=== PATIENT | female | born 1945 | race Caucasian/White ===

== ENCOUNTER 2016-09-18 15:51 | Emergency (ER) | payer OTHER ==
[2016-09-18] MEDS ORDERED: OXYMETAZOLINE 30 ML NASAL SPRAY ONE (16:00)
[2016-09-18] MEDS ORDERED: SILVER NITRATE APPLICATOR 1 APPL TP ONE (16:01)
[2016-09-18 16:10] VITALS: RESP 18; TEMP 98
--- NOTE | 2016-09-18 16:25 | UCPHY ---
H & P Time Seen by Provider: 09/18/16 16:10 Patient Type: Established HPI/ROS: HPI Nose bleed. 70-year-old female. She is on dabigatran for atrial fibrillation. She reports spontaneous nose bleed, right nasal cavity ongoing for the last 2 and 0.5 hours , unrelieved by pressure. No history of traumatic event. Not lightheaded. No headache. No other complaints. ROS: Constitutional: No fever, no chills. No weakness. Eyes: No discharge. No changes in vision. ENT: No sore throat. No nasal congestion or rhinorrhea. As above. Respiratory: No cough. No shortness of breath. Cardiac: No chest pain, no palpitations. Gastrointestinal: No abdominal pain, no vomiting, no diarrhea. Genitourinary: No hematuria. No dysuria or increased frequency with urination. Musculoskeletal: No back pain. No neck pain. No myalgias or arthralgias. Skin: No rashes. Neurological: No headache. No focal weakness or altered sensation. Past medical history: Depression, constipation, CVA, coronary artery disease, AFib, hypertension. Social history: Here with family member. Nonsmoker. Physical Exam: General Appearance: Alert, no distress. This patient is responding to questions appropriately and in full sentences. This patient appears well- hydrated and well-nourished. Eyes: Pupils equal and round no pallor or injection. No lid edema, erythema or injection. ENT, Mouth: Mucous membranes are moist. Blood in the posterior pharynx. The pharyngeal tissues are unremarkable. No edema or swelling. No asymmetry suggestive of abscess. No erythema or exudates. On speculum examination, source of bleeding is anterior mid septum right nasal cavity. Neurological: Motor sensory function is grossly intact. Cranial nerves are normal. Gait is normal. Skin: Warm and dry, no rashes. Musculoskeletal: Neck is supple and nontender. Extremities are symmetrical. All joints range without pain or impingement. Psychiatric: No agitation. No depression. Database: EKG: Imaging: Procedures: Procedure: Epistaxis control. After verbal consent was obtained, the patient was anesthetized with Afrin solution soaked cotton pledget. The anterior epistaxis was identified. The patient was treated with chemical cautery initially, this failed. The bleeding was 2 brisk secondary to dabigatran and anticoagulation. A 4 cm rhino rocket nasal plug was indicated. We did not have this at urgent care. I had placed a 5.5 cm rhino rocket. Good tamponade an hemostasis was achieved with this. Following the procedure the patient was re-examined and the bleeding was well controlled. The patient tolerated the procedure well. The procedure was performed by myself. Emergency department course: After my evaluation, procedure as above. After this procedure, the patient was given 500 mg of oral Keflex. Plan will be to prescribe her this medication over the next 3 days. She is to follow up with [facility] tomorrow in their clinic for re-evaluation and further management. I explained to the patient and her family member that the standard duration of placement of a nasal pack is 3 days. I discussed the importance of follow-up tomorrow in ENT Clinic. Return to emergency department precautions were reviewed. All of their questions were answered. She was discharged in good condition. Differential Diagnosis: The differential diagnosis on this patient includes but is not limited to anterior epistaxis, on anticoagulation. Posterior source of bleeding, traumatic injury unlikely. This represents a partial list of diagnoses considered. These considerations are based on history, physical exam, past history, reassessment and diagnostic testing. Smoking Status: Never smoked Constitutional: Initial Vital Signs Temperature (C) 36.6 C 09/18/16 16:08 Heart Rate 85 09/18/16 16:08 Respiratory Rate 18 09/18/16 16:08 Blood Pressure 157/64 H 09/18/16 16:08 O2 Sat (%) 95 09/18/16 16:08 O2 Delivery Mode Room Air Allergies/Adverse Reactions: Sulfa (Sulfonamide Antibiotics) Allergy (Intermediate, Verified 07/01/15 07:38) Hives Home Medications: Medication Instructions Recorded PARoxetine HCL [Paxil 30mg (RX)] 09/24/12 Coreg 08/25/14 Pradaxa 08/25/14 Digoxin 03/03/15 Ambien 07/01/15 CLONAZEPAM 07/01/15 Ciprofloxacin [Cipro] 250 mg PO BID@1000,2000 #10 tab 07/01/15 Lisinopril 07/01/15 Ondansetron Odt [Zofran Odt 4 mg 4 mg PO Q4 PRN #6 tab 07/01/15 (RX)] Cephalexin [Keflex (*)] 500 mg PO Q6 3 Days 09/18/16 Departure - Departure Disposition: Home, Routine, Self-Care Clinical Impression: Epistaxis Condition: Good Instructions: Nosebleed (ED) Additional Instructions: Read and follow provided instructions. Follow-up with [facility], tomorrow in clinic as discussed for re- evaluation and further management. Take Keflex, 500 mg, 4 times daily for the next 3 days while the nasal plug is in place. Return to the emergency department for bleeding, difficulty breathing, lightheaded or other serious concerns. Referrals: Cesar Casillas MD [Medical Doctor] - As per Instructions Prescriptions: Cephalexin [Keflex (*)] 500 mg PO Q6 3 Days - PQRS PQRS Measurement: 134: Depression screening and followup, PRIME MD-PHQ2 (12 years and older) Over the last 2 weeks, how often have you been bothered by any of the following problems? 1. Feeling down, depressed, or hopeless? 2. Little interest or pleasure in doing things? Answered no to both questions. 130: Documentation of medications. Reviewed all patient medications, doses, route and frequency. 226: Do you smoke? No. 47: 65 and older: Advanced care planning. Patient designates surrogate decision maker as family. 51: 18 years old and older with diagnosis of COPD, spirometry performance. NA 52: 18 years old and older with COPD and symptoms of COPD or FEV1<60% predicted prescribed a B Agonist. NA
[2016-09-18] MEDS ORDERED: CEPHALEXIN 500 MG CAP PO ONE (16:51)
[2016-09-18] MEDS ORDERED: CEPHALEXIN 500MG PREPACK#4 BTL TAKEHOME ONE (16:51)
[2016-09-18 17:31] VITALS: BP 170/98; PULSE 106; O2SAT 90
== END 2016-09-18 17:15 | disposition home or self-care (01) ==
LOC: CED 15:51
PROC: 2Y41X5Z Packing of Nasal Region using Packing Material (ICD-10-PCS; principal; 2016-09-18)
DX: R04.0 Epistaxis (principal); Z79.01 Long term (current) use of anticoagulants; I48.91 Unspecified atrial fibrillation; I25.10 Atherosclerotic heart disease of native coronary artery without angina pectoris; Z86.73 Personal history of transient ischemic attack (TIA), and cerebral infarction without residual deficits
CPT/HCPCS: 30901; G0463; 99214-PO

== ENCOUNTER → 2017-05-04 | Outpatient (CLI) | payer OTHER, MEDICAID | LOC: CIMAGING 12:03 | PROVIDERS: ATTEND Family Medicine | DX: Z12.31 Encounter for screening mammogram for malignant neoplasm of breast (principal) | CPT/HCPCS: G0202 ==

== ENCOUNTER 2017-09-23 11:07 | Emergency (ER) | payer OTHER, MEDICAID ==
[2017-09-23 11:20] VITALS: BP 146/74; PULSE 67; RESP 16; TEMP 97.9; O2SAT 95
[2017-09-23] MEDS ORDERED: CEPHALEXIN 500 MG CAP PO ONE (11:54)
--- NOTE | 2017-09-23 11:54 | EDPHY ---
H & P Time Seen by Provider: 09/23/17 11:18 HPI/ROS: This patient describes dysuria for over a week now. She also describes back pain that she has had prior to the onset of her urinary symptoms. She thinks this is a kidney but admits that she has had this pain between urinary tract infections as well and is described as mild to moderate right-sided lumbar more than midline. She also describes suprapubic discomfort of moderate intensity distant with prior UTIs. Her drove her here by private vehicle for evaluation of her symptoms. ROS: No fevers. No other constitutional symptoms Pulmonary: No shortness of breath Cardiovascular: No lightheadedness GI: No nausea vomiting : As per HPI. She has baseline urinary incontinence since having stroke. Neuro: No new numbness or tingling in her lower extremities. 7 point ROS is otherwise negative. Past Medical/Surgical History: A review of past medical records reveals a Klebsiella pneumonia pathogen a prior UTI here a few years ago that was sensitive to cephalosporins and to Macrobid. She was seen in August [address] Edward foy-urology for evaluation of her frequent UTIs and had an unremarkable ultrasound of kidneys your bladder at that time per patient's report Prior stroke with baseline urinary incontinence Smoking Status: Never smoked Physical Exam: General Appearance: Alert, no distress. Eyes: Pupils equal and round no pallor or injection. ENT, Mouth: Mucous membranes moist. Respiratory: There are no retractions, lungs are clear to auscultation. Cardiovascular: Regular rate and rhythm. No murmur gallop or rub Gastrointestinal: Normoactive, soft, mild suprapubic tenderness with no guarding or rebound. Back: Mild lumbar midline tenderness the patient states is baseline for her. Right lumbar paraspinous muscular tenderness more likely than CVA tenderness based on exam. Neurological: GCS 15 Skin: Warm and dry, no rashes. Musculoskeletal: Neck is supple nontender. Extremities are symmetrical, full range of motion. Psychiatric: Mood and affect normal DIFFERENTIAL DIAGNOSIS: After history and physical exam differential diagnosis was considered for cystitis, early pyelonephritis, urethritis, chronic back pain Constitutional: Initial Vital Signs Temperature (C) 36.6 C 09/23/17 11:15 Heart Rate 67 09/23/17 11:15 Respiratory Rate 16 09/23/17 11:15 Blood Pressure 146/74 H 09/23/17 11:15 O2 Sat (%) 95 09/23/17 11:15 O2 Delivery Mode Room Air Allergies/Adverse Reactions: Sulfa (Sulfonamide Antibiotics) Allergy (Intermediate, Verified 09/23/17 11:20) Hives Home Medications: Medication Instructions Recorded PARoxetine HCL [Paxil 30mg (RX)] 09/24/12 Pradaxa 08/25/14 Cephalexin [Keflex (*)] 500 mg PO TID #21 cap 09/23/17 Phenazopyridine HCl [Pyridium 200 mg PO TID PRN #6 tab 09/23/17 200mg (RX)] MDM/Departure - MDM Diagnostics: Review of urinalysis reveals leukocytes, bacteria and microscopic hematuria consistent with UTI. I sent a culture which is pending. Medications Given: Discontinued Medications Cephalexin HCl (Keflex) 500 mg PO EDNOW ONE PRN Reason: Protocol Stop: 09/23/17 11:55 Last Admin: 09/23/17 12:02 Dose: 500 mg Phenazopyridine HCl (Pyridium) 200 mg PO EDNOW ONE Stop: 09/23/17 11:56 Last Admin: 09/23/17 12:03 Dose: 200 mg ED Course/Re-evaluation: Discussion: Patient here with UTI likely cystitis versus early pyelonephritis given back discomfort. Given this will cover her with Keflex antibiotic. She received 1st 500 mg dose while here in the emergency department as well as peridium does for comfort. She does not appear toxic and should do well with p.o. Medications. - Depart Disposition: Home, Routine, Self-Care Clinical Impression: Urinary tract infection Qualifiers: Urinary tract infection type: site unspecified Hematuria presence: without hematuria Qualified Code(s): N39.0 - Urinary tract infection, site not specified Condition: Good Instructions: Urinary Tract Infection in Women (ED) Additional Instructions: Diagnosis: Urinary tract infection Plan: Drink plenty fluids Keflex antibiotic Follow up with primary care physician for any ongoing symptoms that persist beyond the next 3-5 days Return for any significant worsening despite the treatment plan. Prescriptions: Cephalexin [Keflex (*)] 500 mg PO TID #21 cap Phenazopyridine HCl [Pyridium 200mg (RX)] 200 mg PO TID PRN #6 tab PRN Reason: dysuria Referrals: Kika Guillory MD [Primary Care Provider] - As per Instructions
[2017-09-23] MEDS ORDERED: PHENAZOPYRIDINE HCL 200 MG TAB PO ONE (11:55)
== END 2017-09-23 12:13 | disposition home or self-care (01) ==
LOC: CED 11:07
DX: N39.0 Urinary tract infection, site not specified (principal); B96.89 Other specified bacterial agents as the cause of diseases classified elsewhere
CPT/HCPCS: 81003-PO; 81015-PO

== ENCOUNTER 2017-09-26 13:21 | Emergency (ER) | payer OTHER, MEDICAID ==
[2017-09-26] MEDS ORDERED: NS 1,400 ML IV ONE (13:34)
--- NOTE | 2017-09-26 13:35 | EDPHY ---
H & P Stated Complaint: uti worse.seen here two days ago Time Seen by Provider: 09/26/17 13:29 HPI/ROS: CHIEF COMPLAINT: Urinary tract infection, fatigue HISTORY OF PRESENT ILLNESS: Patient is a 71-year-old female who returns to the emergency department complaining of urinary tract infection and increased fatigue. She was seen here 3 days ago diagnosed with urinary tract infection and started on Keflex. Today her culture results returned with enterococcus faecalis. We called and switched her to Macrobid but during the course of our conversation she stated that she was feeling fatigued. Nursing staff recommended she come back to be re-evaluated. She did take her 1st dose of Macrobid a few hours ago. She has not had a fever. She has felt nauseous but has not vomited. No diarrhea. No abdominal pain. Mild lower back pain. Her states that she has been acting normally at home. REVIEW OF SYSTEMS: Constitutional: denies: chills, fever, recent illness, recent injury EENTM: denies: blurred vision, double vision, nose congestion Respiratory: denies: cough, shortness of breath Cardiac: denies: chest pain, irregular heart rate, lightheadedness, palpitations Gastrointestinal/Abdominal: denies: abdominal pain, diarrhea, nausea, vomiting, blood streaked stools Genitourinary: See HPI Musculoskeletal: denies: joint pain, muscle pain Skin: denies: lesions, rash, jaundice, bruising Neurological: denies: headache, numbness, paresthesia, tingling, dizziness, weakness Hematologic/Lymphatic: denies: blood clots, easy bleeding, easy bruising Immunologic/allergic: denies: HIV/AIDS, transplant EXAM: GENERAL: Well-appearing, slightly dry small amount of food in the right corner of her mouth. HEAD: Atraumatic, normocephalic. EYES: Pupils equal round and reactive to light, extraocular movements intact, sclera anicteric, conjunctiva are normal. ENT: TMs normal, nares patent, oropharynx clear without exudates. Dry mucous membranes. NECK: Normal range of motion, supple without lymphadenopathy or JVD. LUNGS: Breath sounds clear to auscultation bilaterally and equal. No wheezes rales or rhonchi. HEART: Regular rate and rhythm without murmurs, rubs or gallops. ABDOMEN: Soft, nontender, normoactive bowel sounds. No guarding, no rebound. No masses appreciated. BACK: No CVA tenderness, no spinal tenderness, step-offs or deformities EXTREMITIES: Normal range of motion, no pitting or edema. No clubbing or cyanosis. NEUROLOGICAL: Cranial nerves II through XII grossly intact. Normal speech, normal gait. 5/5 strength, normal movement in all extremities, normal sensation PSYCH: Normal mood, normal affect. SKIN: Warm, dry, normal turgor, no visible rashes or lesions. Source: Patient Exam Limitations: No limitations - Personal History Current Tetanus Diphtheria and Acellular Pertussis (TDAP): Yes Tetanus Vaccine Date: WITHIN 10 YRS - Medical/Surgical History Hx Asthma: No Hx Chronic Respiratory Disease: No Hx Diabetes: No Hx Cardiac Disease: Yes Hx Renal Disease: No Hx Cirrhosis: No Hx Alcoholism: No Hx HIV/AIDS: No Hx Splenectomy or Spleen Trauma: No Other PMH: DEPRESSION,CONSTIPATION,CVA,A FIB,CAD,HTN, incontinence - Family History Significant Family History: No pertinent family hx - Social History Smoking Status: Former smoker Alcohol Use: Sober Drug Use: None Constitutional: Initial Vital Signs Temperature (C) 36.2 C 09/26/17 13:25 Heart Rate 53 L 09/26/17 13:25 Respiratory Rate 20 09/26/17 13:25 Blood Pressure 148/99 H 09/26/17 13:25 O2 Sat (%) 95 09/26/17 13:25 O2 Delivery Mode Room Air Allergies/Adverse Reactions: Sulfa (Sulfonamide Antibiotics) Allergy (Intermediate, Verified 09/26/17 13:33) Hives Home Medications: Medication Instructions Recorded PARoxetine HCL [Paxil 30mg (RX)] 09/24/12 Pradaxa 08/25/14 Cephalexin [Keflex (*)] 500 mg PO TID #21 cap 09/23/17 Phenazopyridine HCl [Pyridium 200 mg PO TID PRN #6 tab 09/23/17 200mg (RX)] Ondansetron Odt [Zofran Odt 4 mg 4 mg PO Q4 PRN #20 tab 09/26/17 (RX)] Medical Decision Making ED Course/Re-evaluation: The chemistry and lactate here is currently broken as is the lactate. Will need to send those to [facility]. 2:40 p.m. the patient does not show any signs of sepsis. Her white blood cell count is not elevated. She is feeling much better after hydration. She has already began Macrobid which should be effective. I will treat her with Zofran. Otherwise she is eager to go home. Her agrees with this plan. We discussed indications for returning. Differential Diagnosis: Partial list of the Differential diagnosis considered include but were not limited to; urinary tract infection, pyelonephritis, dehydration and although unlikely based on the history and physical exam, I also considered renal failure , sepsis. I discussed these differential diagnoses and the plan with the patient as well as the usual and expected course. The patient understands that the diagnosis is provisional and that in medicine we are not always correct and that further workup is often warranted. Usual and customary warnings were given. All of the patient's questions were answered. The patient was instructed to return to the emergency department should the symptoms at all worsen or return, otherwise to followup with the physician as we discussed. - Data Points Laboratory Results: Laboratory Results 09/26/17 14:07 09/26/17 14:03 Microbiology Results: MICROBIOLOGY 09/26/17 14:07 Blood Blood Culture - Preliminary 09/26/17 14:50 Blood Blood Culture - Preliminary Medications Given: Discontinued Medications Sodium Chloride (Ns) 1,400 mls @ 2,800 mls/hr 30 ml/kg infuse over 30 min ( 1400 ml) IV EDNOW ONE PRN Reason: Protocol Stop: 09/26/17 14:03 Last Admin: 09/26/17 13:58 Dose: 1,400 mls Ondansetron HCl (Zofran) 4 mg IVP EDNOW ONE Stop: 09/26/17 14:42 Last Admin: 09/26/17 14:52 Dose: 4 mg Departure - Departure Disposition: Home, Routine, Self-Care Clinical Impression: Dehydration Urinary tract infection Qualifiers: Urinary tract infection type: site unspecified Hematuria presence: without hematuria Qualified Code(s): N39.0 - Urinary tract infection, site not specified Condition: Fair Instructions: Dehydration (ED), Urinary Tract Infection in Women (ED) Referrals: Kika Guillory MD [Primary Care Provider] - As per Instructions Prescriptions: Ondansetron Odt [Zofran Odt 4 mg (RX)] 4 mg PO Q4 PRN #20 tab PRN Reason: Nausea & Vomiting
[2017-09-26 13:38] VITALS: TEMP 97.2
[2017-09-26 14:10] LABS: PLATELET COUNT 219 10^3/uL (150-400)
[2017-09-26 14:21] LABS: INR 1.23 (0.83-1.16); PROTIME(PATIENT) 15.3 SEC (12.0-15.0)
[2017-09-26] MEDS ORDERED: ONDANSETRON 4 MG/2 ML VIAL IVP ONE (14:41)
[2017-09-26 15:05] VITALS: O2SAT 96
[2017-09-26 15:32] VITALS: BP 160/60; PULSE 51; RESP 18
== END 2017-09-26 15:30 | disposition home or self-care (01) ==
LOC: CED 13:21
DX: N39.0 Urinary tract infection, site not specified (principal); E86.0 Dehydration; I25.10 Atherosclerotic heart disease of native coronary artery without angina pectoris; I10 Essential (primary) hypertension; E86.9 Volume depletion, unspecified; Z86.73 Personal history of transient ischemic attack (TIA), and cerebral infarction without residual deficits; Z87.891 Personal history of nicotine dependence
CPT/HCPCS: 96361; 96374; 99284; J2405; 80048-PO; 81003-PO; 82247-PO; 82947-QW; 83605-PO; 85025-PO; 85610-PO; 85730-PO

== ENCOUNTER → 2017-10-08 | Outpatient (CLI) | payer OTHER, MEDICAID | LOC: CIMAGING 12:33 | PROVIDERS: ATTEND Family Medicine | DX: N83.201 Unspecified ovarian cyst, right side (principal); R93.8 Abnormal findings on diagnostic imaging of other specified body structures; Z78.0 Asymptomatic menopausal state | CPT/HCPCS: 76856-PO ==

== ENCOUNTER → 2018-05-08 | Outpatient (CLI) | payer OTHER, MEDICAID | LOC: CIMAGING 11:45 | PROVIDERS: ATTEND Family Medicine | DX: Z12.31 Encounter for screening mammogram for malignant neoplasm of breast (principal) ==